=== PATIENT | male | born 1970 | race Caucasian/White ===

== ENCOUNTER 2021-02-22 12:11 | Emergency (ER) | payer OTHER ==
[2021-02-22 13:03] LABS: HEMOGLOBIN 14.8 gm/dl (14.0-17.5); RED BLOOD COUNT 4.94 M/UL (4.20-5.50)
[2021-02-22 13:26] LABS: BUN/CREATININE RATIO 20 (0-10)
[2021-02-22] MEDS ORDERED: ROBITUSSIN AC480 ML PO (14:51)
[2021-02-22] MEDS ORDERED: ZOFRAN4 MG PO (14:51)
== END 2021-02-22 15:35 | disposition home or self-care (01) ==
LOC: ER1 12:11
PROVIDERS: Physician Assistant
DX: U07.1 COVID-19 (principal); J12.82 Pneumonia due to coronavirus disease 2019; I10 Essential (primary) hypertension; F17.290 Nicotine dependence, other tobacco product, uncomplicated
CPT/HCPCS: 71045; 80053; 82550; 82553; 83874; 84484; 85025; 93005; 99284